=== PATIENT | male | born 1980 | race African-American/Black ===

== ENCOUNTER 2017-12-11 23:17 | Emergency (ER) | payer OTHER ==
[~2017-12-11] VITALS: Ht 175.3 cm; Wt 81.6 kg
[~2017-12-11 23:17] MED LIST: AMOXICILLIN500 M1 PO; IBU-8800 MG PO; VICODIN 300 MG-1 TAB PO
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
[2017-12-12 01:21] VITALS: BP 134/76
== END 2017-12-12 01:23 ==
LOC: ERH 23:17
DX: Z04.1 Encounter for examination and observation following transport accident (principal); F10.10 Alcohol abuse, uncomplicated; F12.10 Cannabis abuse, uncomplicated; V43.02XA Car driver injured in collision with other type car in nontraffic accident, initial encounter